=== PATIENT | male | born 1980 | race Caucasian/White ===

== ENCOUNTER → 2019-01-21 12:16 | Outpatient (CLI) | payer OTHER, SELFPAY ==
[2019-01-21 15:08] LABS: ALB/GLOB Ratio 1.4 RATIO (0.9-2.4); AST(SGOT) 23 U/L (15-37); Alanine Aminotransfer ALT/SGPT 46 U/L (16-61); Albumin, Serum 4.2 g/dL (3.2-5.0); Alkaline Phosphatase 46 U/L (45-117); Anion Gap 9 (5-15); BUN 20 mg/dL (7-18); BUN/Creat Ratio 18.9 RATIO (10-20); Calcium,Total 8.5 mg/dL (8.5-10.1); Chloride 109 mmol/L (98-107); Cholesterol 166 mg/dL (200); Creatinine, Serum 1.06 mg/dL (0.70-1.30); EST Glomerular Filtration Rate 83 mL/min (>60); Est Glom Filt Rate - Afr Amer 101 mL/min (>60); Globulin 2.9 g/dL (2.2-4.2); Glucose 74 mg/dL (74-106); High Density Lipoprotein 38 mg/dL; Potassium 3.9 mmol/L (3.5-5.1); Protein, Total 7.1 g/dL (6.4-8.2); Sodium Level 142 mmol/L (136-145); T4 Free Direct 1.31 ng/dL (0.76-1.46); Thyroid Stim Hormone (TSH) 1.81 uIU/mL (0.358-3.74); Triglycerides 157 mg/dL; Very Low Density Lipoprotein 31 mg/dL (5-40)
[2019-01-22 20:07] LABS: Endomysial Antibody IgA Negative (Negative); Immunoglobulin A 393 mg/dL (90-386)
[2019-01-24 09:11] LABS: Anti-Thyroglobulin AB < 1.0 IU/mL (0.0-0.9); Thyroglobulin, Serum Qt. 17.5 ng/mL (1.4-29.2); Thyroid Peroxidase AB 8 IU/mL (0-34); t-Transglutaminase IgA <2 U/mL (0-3)
== END ==
PROVIDERS: Family Provider Family Medicine; PCP Family Medicine; Referring Provider Family Medicine; Visit Provider Family Medicine
DX: E01.0 Iodine-deficiency related diffuse (endemic) goiter (principal); R19.7 Diarrhea, unspecified
CPT/HCPCS: 36415; 80053; 80061; 82784; 83516; 84432; 84439; 84443; 86255; 86376; 86800

== ENCOUNTER → 2019-01-26 09:55 | Outpatient (CLI) | payer OTHER, SELFPAY ==
--- NOTE | 2019-01-26 09:58 | US_ITS ---
STUDY: THYROID ULTRASOUND REASON FOR EXAM: Male, 38 years old. Thyromegaly TECHNIQUE: Ultrasound evaluation of the thyroid was performed with real-time and static cano-scale imaging. COMPARISON: None. FINDINGS: RIGHT LOBE: The right lobe of the thyroid gland measures 5.2 x 1.8 x 2.0 cm. There is a homogeneous echotexture. There is a solid 8 mm lower pole nodule LEFT LOBE: The left lobe of the thyroid gland measures 4.6 x 1.6 x 1.3 cm. There is a homogeneous echotexture. There are no demonstrated solid, cystic or complex lesions. ISTHMUS: The isthmus measures 0.6 cm. The regional lymph nodes are normal. US/Thyroid IMPRESSION: Normal size and homogeneous thyroid gland with a 6 x 8 x 8 mm nodule in the right lobe. Further evaluation with thyroid uptake study is recommended since no previous studies are available for comparison. If the nodule should demonstrate suspicious uptake characteristics, biopsy would be recommended, if not a six-month follow-up would be recommended to assure stability Electronically Signed: Osbaldo Blanco MD at 11:51 EDT , Service support ,
== END ==
PROVIDERS: Family Provider Family Medicine; PCP Family Medicine; Referring Provider Family Medicine; Visit Provider Family Medicine
DX: E01.0 Iodine-deficiency related diffuse (endemic) goiter (principal)
CPT/HCPCS: 76536

== ENCOUNTER 2019-02-12 07:15 | Day surgery (SDC) | payer OTHER, SELFPAY ==
[2019-02-12] VITALS (8 sets, daily range): BP systolic 128–148; BP diastolic 70–98; PULSE 67–88; RESP 16–18; TEMP 36.5–37; O2SAT 92–95; BMI 42.1
[2019-02-12] MEDS: Lidocaine 4% 50 ML Bottle (08:17)
[2019-02-12] MEDS: Oxymetazoline 0.05% 1 SPRAY SPRAY.BTL 15 SPRAY (08:17)
--- NOTE | 2019-02-12 08:45 | ETH_PTH ---
PATIENT: DAVID MURRELL LOC: [facility] [place] U#:[id number] AGE/SX: 38/M ROOM: RE02/12/[address]: Dr. Maxwell Cash MD : [id number] BED: DIS: 02/12/2019 SPEC #: [id number] RECD: 02/12/19 09:48 STATUS: HENRRY REMehreen #: [id number] AMAN: 02/12/19 08:[address]: Maxwell Cash DEPT: SURGICAL PATHOLOGY RECD BY: Declan Castañeda ENTERED: 02/12/19 10:53 SP TYPE: ETH TISS OTHR DR: Dr. Trevor Johansen MD Tissues: Ethmoid sinus, NOS Procedures: Decalcification bone/plaque Surgery Specimen Level IV HEADER OPERATION: Endoscopy, sinus nasal maxillary antrostomy PRE-OP DIAGNOSIS: Chronic maxillary sinusitis; chronic ethmoidal sinusitis; chronic bullosa TISSUE SUBMITTED: Left sinus contents MICROSCOPIC DIAGNOSIS Left sinus contents: Fragments of respiratory mucosal tissue with chronic inflammation and bone. DARIUSZ:jayde 02/17/19 MICROSCOPIC DESCRIPTION Slides are reviewed. GROSS DESCRIPTION Received in fixative is one container labeled with the patient's name and designated left sinus contents. The specimen consists of multiple fragments of hemorrhagic soft tissue mixed with possible fragments of bone that in aggregate measure 5 x 3 x 0.8 cm. The entire specimen is submitted in four cassettes after decalcification. / DARIUSZ:jayde 02/12/19 TC:3 CPT: 55452, 34182
--- NOTE | 2019-02-12 09:29 | PCM.OPRPT ---
Problem List (1) Chronic maxillary sinusitis Status: Chronic (2) Chronic ethmoidal sinusitis Status: Chronic Report of Operation Date of Procedure: 02/12/19 Pre-Operative Diagnosis: Chronic left maxillary and ethmoid sinusitis Post-Operative Diagnosis: same Surgery/Procedure Performed:: Left maxillary antrostomy, total ethmoidectomy with resection of dorcas bullosa Description of Surgical Findings:: Jermaine is a 38-year-old male preservation of chronic left-sided nasal obstruction failing medical and antibiotic therapy. CT scan showed extensive maxillary and ethmoid sinusitis on that side and the above procedure offered hopes of relief. The risks, alternatives, potential complications, and benefits were discussed at length and any questions answered to the patient and/or caregiver's satisfaction. Witnessed informed consent was obtained in the office, and the patient and/or caregiver was agreeable to proceed. Procedure went as follows: The patient was identified in the preoperative holding and brought to the operating room, was placed under general anesthesia and intubated. When appropriate anesthesia was obtained, the navigational head gear was placed and confirmed to be operational in accordance with the loan interviewer mortgage's directions. Pledgets soaked in a 50-50 mixture of oxymetazoline and 4% topical lidocaine were placed to decongest the nasal mucosa. These were then removed and beginning on the left side using a 0? endoscope the nasal cavity examined. The insertion of the middle turbinate and uncinate process was then injected with 1% lidocaine with 100,000 epinephrine for a total of 6 mL. On the left side, the middle turbinate was medialized with a Tift elevator. This allowed examination of the maxillary sinus ostia which was then probed with a double ball seeker. There is noted to be a secondary ostia in the posterior fontanelle. The uncinate process was then outfractured with a J curette and transected with a backbiting forceps. This was then adjoined to the secondary ostia creating 1 large antrostomy. The obstructing tissue was then removed with the microdebrider creating a wide maxillary antrostomy. The ethmoid bulla was then entered and a total ethmoidectomy was then carried out working posteriorly to anterior. Any polyps, scar, and mucous secretions were removed. There is noted to be a large dorcas bullosa in the middle turbinate was then resected with a through cut instrument and removed as specimen. The posterior aspect of the middle turbinate was then cauterized with suction electrocautery for hemostasis. Floseal hemostatic agent was then applied. An NG tube was then placed to decompress the stomach and the patient returned to anesthesia, revived and extubated having tolerated the procedure well. Type of Anesthesia:: General Anesthesiologist: Parth De La O Special Medications: none Specimen's removed: left maxillary and ethmoid sinus contents Drains: none Estimated Blood Loss (mL): 150 mL Fluids Replaced: 700 mL Grafts/Implants Used: none - Complications none - Admit VTE Documentation VTE Present on Admission: No VTE Mechan Device Prophylaxis: SCD's VTE Pharm Prophylaxis ordered?: No
--- NOTE | 2019-02-12 09:34 | PCM.DC ---
- Discharge Diagnoses Current Active Problems: Current Active and Chronic Problems Chronic maxillary sinusitis (Chronic) Chronic ethmoidal sinusitis (Chronic) You will use the following diet at home:: Regular Discharge Activity: Return to Normal Activity, May not drive while taking narcotic pain medications. Call your doctor if your incision/area has: Sudden Increased Bleeding Call your doctor if you observe: Fever of 101 or Higher, Uncontrolled pain Allergies/Adverse Reactions: Allergies No Known Allergies Allergy (Verified 02/05/19 11:07) Medications to take at Discharge Fluticasone 0.05% [Flonase Nasal [place]] 1 spray NASAL DAILY 02/05/19 Levocetirizine Dihydrochloride [Xyzal] 5 mg PO DAILY 02/05/19 RX: Ibuprofen 600 mg PO DAILY 02/05/19 Primary Care Physician: Trevor Johansen MD [Primary Care Provider] - Test Results: Test results from this visit will be discussed in further detail at your follow-up appointment, if applicable. Please Follow Up With: Maxwell Cash MD When: 2 weeks
== END 2019-02-12 12:15 | disposition home or self-care (01) ==
LOC: SDC 07:17 → AC 07:18
PROVIDERS: Family Provider Family Medicine; PCP Family Medicine; Referring Provider Otolaryngology; Visit Provider Otolaryngology
PROC: (CPT 31240; principal; 2019-02-12 08:15)
DX: J32.0 Chronic maxillary sinusitis (principal); J32.2 Chronic ethmoidal sinusitis
CPT/HCPCS: 31240; 31255; 31267; 88305; 88311; J7120; J2405

== ENCOUNTER → 2019-06-02 15:24 | Outpatient (CLI) | payer OTHER, SELFPAY ==
[2019-02-12 07:33] VITALS: BMI 42.1
--- NOTE | 2019-06-02 15:27 | US_ITS ---
STUDY: THYROID ULTRASOUND REASON FOR EXAM: Male, 38 years old. Nodule TECHNIQUE: Ultrasound evaluation of the thyroid was performed with real-time and static cano-scale imaging. COMPARISON: January 26, 2019 FINDINGS: RIGHT LOBE: The right lobe of the thyroid gland measures 4.7 x 1.8 x 1.6 cm. There is a homogeneous echotexture. Small solid nodule in the lower lobe measuring 6.9 x 7.9 x 8 mm. LEFT LOBE: The left lobe of the thyroid gland measures 4.1 x 1.7 x 1.1 cm. There is a homogeneous echotexture. There are no demonstrated solid, cystic or complex lesions. ISTHMUS: The isthmus measures 6 mm . The regional lymph nodes are normal. There is no significant change in size of the nodule since prior exam US/Thyroid IMPRESSION: Stable appearing solid nodule in the lower pole of the the right lobe of the thyroid measuring approximately 6.9 x 7.9 x 8 mm Electronically Signed: Javad Prescott MD at 16:06 EDT , Service support ,
== END ==
PROVIDERS: Family Provider Family Medicine; PCP Family Medicine; Referring Provider Family Medicine; Visit Provider Family Medicine
DX: E04.1 Nontoxic single thyroid nodule (principal)
CPT/HCPCS: 76536

== ENCOUNTER 2020-06-14 14:00 | Outpatient (RCR) | payer OTHER, SELFPAY ==
[2019-02-12 07:33] VITALS: BMI 42.1
--- NOTE | 2020-04-21 12:45 | HP.PTEVAL ---
Patient's Visit Information DAVID MURRELL is a 39 year old M referred to Physical Therapy by Dr. Bob Bcukley MD with a diagnosis of R shoulder injury. Date of Evaluation: 04/21/20 Physical Therapist: Maxwell Serra DPT, OCS, CSCS - Visit Plan Frequency: 2-3x /Week Duration: 4-6 Weeks Plan: 2-3x/week for 2-4 weeks for. cervical ret ext ex adn progression of forces. upper thoracic and cervical ext mobs. STM, TP TO R RHOMBOIDS EACH SESSION. strengthening of posture, cervical muscle adn pec stretching, POSTURAL forcus - Subjective Shoulder hurts , feels like a knot under it. Bad in morning adn tingling down arm at t imes. Been there for a couple weeks. Better as days goes on if he moves it. Sittign around makes it worse. Pain is under R shoulder blade posterioroly. Rates 8/10 in am and wakes him up at night. Currently 2/10. Some tingling this am. 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 Did call off one day due to pain. Not improving adn is nagging. Home activities are pretty normal, just deals with it. Neck does not really hurt. LB has intermittent pain which is normal for him. - Pain R post shoulder Pain Intensity (Out of 10): 2 Pain Intensity Range: 0, 2, 8 Comment: slept in recliner felt good. - Objective Baseline no tingling. R scap hurts 2/10. protrusion: travels up neck , W. Flexion: W 3/10 and neck pain. retraction: P central neck pain during, Pburning in neck, B R shoulder 2/10. ret /ext: dull ache, 2/10. . Posture is forward head and elevated scap, very muscular. Tender to touch R rhomboids medial to R scap. Scap mobility is fair although depression limited. UE AROM WFL and only pain end range of ext rotation. Cervical ROM 65 B rotation with R pain at end range, 45 ext, retraction limited. reflexes 2/3 bi and tri. SensationUE WNL to gross light touch. UE AROM WFL. Tightness obvious in pectorals. Slight + R cervical compression, no relief with arm OH though. - Goals Goal 1:: Pain in shoulder 90% better at 1/10 at worst Goal Time Frame: 4-6 Weeks Goal 2:: No loss of sleep due to paina nd wake up comfortably Goal Time Frame: 4-6 Weeks Goal 3:: 15 or less quick dash score Goal Time Frame: 4-6 Weeks - Rehabilitation Potential Physical Therapy Diagnosis: R scap pain, cervical derangement vs rhomboid knot. Rehabilitation Potential: Good - Anticipated Interventions Patient/Client Instruction: Educate patient on: Condition, Plan of Care For the Purpose of:: To decrease pain, To increase tolerance to activity/condition/position Therapeutic Exercise to Include: Strength training, Postural training, Flexibilty training, Passive ROM, Active ROM, Amari Exercises For the Purpose of:: To decrease pain, To increase ROM, To improve muscle performance and motor function, To increase tolerance to activity/condition/position Manual Therapy Techniques to Include: Mobilization, Soft tissue mobilization For the Purpose of:: To decrease pain, To increase ROM Thank you for the opportunity to evaluate your patient. For Medicare and Medicare HMO plans, please review the plan of care and approve it. It will need to be FAXED BACK to us at [phone] for Medicare purposes. For Medicare only, by signing this I certify the plan of care. Please let me know if there are questions or concerns regarding this plan of care. Physician Signature: Date:
--- NOTE | 2020-05-11 11:58 | HP.PTREVAL ---
Dr. Bob Buckley MD, It has been my pleasure to treat DAVID MURRELL over the last 6 visits for R shoulder injury. Please see the progress note below for an update on the physical therapy plan of care! Subjective: Shoulder feeling better. Has not noticed it much in the past few days. Feeling better overall. Has good HEP but could not do it yesterday as he was busy. No f/u scheduled with doctor. Neck stiff 3 days ago. Shoulder pain gone for 3 days and had it after sleeping wrong, 12/20. Work going well. Feeling better. Objective/Function: Full cervical AROM 85 ext with just some end range central tightness. rotation are 80 degrees without pain. Full UE AROM without pain and 4+ strength. Overall doing well Plan Plan: 5 visits for. 1. 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 2. Get to end range of cervical extension repeatedly and c/s T/s ext mobs as needed. Enusre patient focussing on posture. Goals Goal 1:: Pain in shoulder 90% better at 1/10 at worst Goal Time Frame: 4-6 Weeks Goal Progress: Goal Met Goal 2:: No loss of sleep due to paina nd wake up comfortably Goal Time Frame: 4-6 Weeks Goal Progress: Goal Met Goal 3:: 15 or less quick dash score Goal Time Frame: 4-6 Weeks Goal Progress: Goal Met Goal 4:: I approp gym exercise program for cevical and postural strength without increaseing pain Goal Time Frame: 2-4 Weeks Goal Progress: NEW GOAL Anticipated Interventions Patient/Client Instruction: Educate patient on: Condition, Plan of Care For the Purpose of:: To decrease pain, To increase tolerance to activity/condition/position Therapeutic Exercise to Include: Strength training, Postural training, Flexibilty training, Passive ROM, Active ROM, Amari Exercises For the Purpose of:: To decrease pain, To increase ROM, To improve muscle performance and motor function, To increase tolerance to activity/condition/position Manual Therapy Techniques to Include: Mobilization, Soft tissue mobilization For the Purpose of:: To decrease pain, To increase ROM Please do not hesitate to contact me at [phone] by phone or if you have questions or concerns regarding this new plan of care! Sincerely, Maxwell Serra, DPT, OCS, CSCS
--- NOTE | 2020-06-14 14:19 | HP.PTDCSUM ---
It has been my pleasure to treat DAVID MURRELL referred by Dr. Bob Buckley MD, with the diagnosis of R shoulder injury for a total of 11 visit(s). Discharge Date: 06/14/20 Please see the following information for a summary of their discharge status. Subjective: Better. Not bothering him much adn stretches have helped. Some tightness in traps but nothing else. Doing some gym workout. Activities normal and work normal. R post shoulder Pain Intensity (Out of 10): 0 UT Pain Intensity (Out of 10): 0 Back Pain Intensity (Out of 10): 0 % Improvement: 95 Objective/Function: Full c/s AROM to 85 ext, 80 B rotations without pain, full sB. Srength in UE 5/5 withput pain. Slight FW head posture corrected with VC. Overall, much better adn confident he can continue on own. Goal 1:: Pain in shoulder 90% better at 1/10 at worst Goal Progress: Goal Met Goal 2:: No loss of sleep due to paina nd wake up comfortably Goal Progress: Goal Met Goal 3:: 15 or less quick dash score Goal Progress: Goal Met Goal 4:: I approp gym exercise program for cevical and postural strength without increaseing pain Goal Progress: Goal Met Plan: d/c, will contact doctor if pain returns. If there are questions or concerns regarding this patient's physical therapy, please feel free to call me at [phone]. Thank you for the referral of this patient. Sincerely, Maxwell Serra, DPT, OCS, CSCS
== END 2020-06-14 19:00 | disposition home or self-care (01) ==
LOC: PT 14:00
PROVIDERS: PCP Family Medicine; Referring Provider Family Medicine; Visit Provider Family Medicine
DX: S49.91XD Unspecified injury of right shoulder and upper arm, subsequent encounter (principal)
CPT/HCPCS: 97110; 97140; 97162; 97164

== ENCOUNTER → 2020-10-02 16:24 | Outpatient (CLI) | payer OTHER, SELFPAY ==
[2019-02-12 07:33] VITALS: BMI 42.1
== END ==
PROVIDERS: PCP Family Medicine; Visit Provider Family Medicine
DX: U07.1 COVID-19 (principal)
CPT/HCPCS: 87635; U0003

== ENCOUNTER 2020-10-30 13:01 | Outpatient (RCR) | payer OTHER, SELFPAY ==
[2019-02-12 07:33] VITALS: BMI 42.1
== END 2020-11-09 23:59 ==
LOC: NS 13:01
PROVIDERS: PCP Family Medicine; Visit Provider Family Medicine
DX: Z71.3 Dietary counseling and surveillance (principal)
CPT/HCPCS: 97802

== ENCOUNTER 2020-12-05 11:00 | Outpatient (RCR) | payer OTHER, SELFPAY ==
[2019-02-12 07:33] VITALS: BMI 42.1
== END 2020-12-10 23:59 ==
LOC: NS 11:00
PROVIDERS: PCP Family Medicine; Visit Provider Family Medicine
DX: Z71.3 Dietary counseling and surveillance (principal)
CPT/HCPCS: 97803

== ENCOUNTER 2021-01-01 12:00 | Outpatient (RCR) | payer OTHER, SELFPAY ==
[2019-02-12 07:33] VITALS: BMI 42.1
== END 2021-01-07 23:59 ==
LOC: NS 12:00
PROVIDERS: PCP Family Medicine; Visit Provider Family Medicine
DX: Z71.3 Dietary counseling and surveillance (principal)
CPT/HCPCS: 97803

== ENCOUNTER 2021-01-30 12:00 | Outpatient (RCR) | payer OTHER, SELFPAY ==
[2019-02-12 07:33] VITALS: BMI 42.1
== END 2021-02-07 23:59 ==
LOC: NS 12:00
PROVIDERS: PCP Family Medicine; Visit Provider Family Medicine
DX: Z71.3 Dietary counseling and surveillance (principal)
CPT/HCPCS: 97803

== ENCOUNTER → 2021-02-27 08:53 | Outpatient (CLI) | payer OTHER, SELFPAY ==
[2019-02-12 07:33] VITALS: BMI 42.1
--- NOTE | 2021-02-27 08:57 | RAD_ITS ---
STUDY: X-RAY - SACROILIAC JOINTS REASON FOR EXAM: Male, 40 years old. BACK PAIN TECHNIQUE: 3 view(s) of the sacroiliac joints were obtained. COMPARISON: None. FINDINGS: Normal bilateral sacroiliac joints. Normal visualized sacral ala and sacrum. Normal visualized iliac bones. Normal visualized soft tissue structures. RAD/S-I Jts 3 or More Views IMPRESSION: Normal x-ray examination of the bilateral sacroiliac joints. Electronically Signed: Сергей Coffey MD at 15:08 EDT , Service support ,
--- NOTE | 2021-02-27 09:00 | RAD_ITS ---
STUDY: X-RAY - LUMBAR SPINE REASON FOR EXAM: Male, 40 years old. BACK PAIN TECHNIQUE: 4 view(s) of the lumbar spine were obtained. COMPARISON: None FINDINGS: Normal lumbar lordosis. There is no substantial scoliosis. There is a normal alignment of the vertebrae. There is a transitional L5 vertebrae with partial sacralization. Spina bifida occulta of the L5 vertebrae. Anterior spondylosis at the T10-T11, T11-T12 level. Disc space narrowing at the L4-L5 and L5-S1 levels. The soft tissue structures are unremarkable. RAD/L/S Spine Min 4 Views IMPRESSION: Degenerative changes of the spine, as detailed above. Transitional vertebrae with partial sacralization of the L5 vertebrae. Spina bifida occulta of the L5 vertebrae. Electronically Signed: Сергей Coffey MD at 15:10 EDT , Service support ,
== END ==
LOC: MTRAD 08:55
PROVIDERS: PCP Family Medicine; Referring Provider Family Medicine; Visit Provider Family Medicine
DX: Q76.0 Spina bifida occulta (principal); Q76.49 Other congenital malformations of spine, not associated with scoliosis; M48.061 Spinal stenosis, lumbar region without neurogenic claudication; M47.814 Spondylosis without myelopathy or radiculopathy, thoracic region
CPT/HCPCS: 72110; 72202

== ENCOUNTER 2021-02-27 11:00 | Outpatient (RCR) | payer OTHER, SELFPAY ==
[2019-02-12 07:33] VITALS: BMI 42.1
== END 2021-03-09 23:59 ==
LOC: NS 11:00
PROVIDERS: PCP Family Medicine; Visit Provider Family Medicine
DX: Z71.3 Dietary counseling and surveillance (principal); E66.9 Obesity, unspecified
CPT/HCPCS: 97803

== ENCOUNTER 2021-04-25 16:06 | Emergency (ER) | payer OTHER, SELFPAY ==
[2021-03-14 12:49] VITALS: BMI 42.1
[2021-04-25 16:07] VITALS: BP 156/87; PULSE 77; RESP 15; TEMP 36.6; O2SAT 95; BMI 38.2
--- NOTE | 2021-04-25 16:17 | EX.ED.GENINJ ---
HPI History of Present Illness Chief Complaint: Laceration Informant: patient Narrative Narrative: 40-year-old male was using a table saw when his left thumb contacted the blade. This resulted in wound to the volar distal aspect of the left thumb. Unsure of his last tetanus. He is a superintendent operations division. Tetanus Immunization: Unknown [facility] Medical History (Updated 04/25/21 @ 16:[address] Jai Tran DO) Chronic ethmoidal sinusitis Chronic maxillary sinusitis Home Medications fluticasone propionate 1 spray NASAL DAILY 02/05/19 [History Last Taken Unknown] ibuprofen 600 mg PO DAILY 02/05/19 [History Last Taken Unknown] levocetirizine [Xyzal] 5 mg PO DAILY 02/05/19 [History Last Taken Unknown] acetaminophen [Tylenol] 500 mg PO Q4H PRN PRN tablet 02/12/19 [Rx Last Taken Unknown] Allergy/AdvReac Type Severity Reaction Status Date / Time No Known Allergies Allergy Verified 02/05/19 11:07 Social History (Updated 04/25/21 @ 16:[address] Jai Tran DO) Smoking Status: Never smoker substance use type: does not use ROS ROS ED Constitutional Constitutional ED: Denies chills or weight loss Eyes Eyes: Denies change in vision or diplopia ENT ENT ED: Denies ear pain, rhinorrhea or sore throat Cardiovascular Cardiovascular: Denies chest pain, orthopnea, palpitations or racing heartbeat Respiratory/Chest Respiratory/Chest: Denies cough, dyspnea or orthopnea Gastrointestinal Gastrointestinal: Denies abdominal pain, diarrhea, nausea or vomiting Genitourinary Genitourinary ED: Denies dysuria, hematuria or urinary frequency Musculoskeletal Musculoskeletal: Denies arthralgias or myalgias Integumentary Reports other Details: Wound left thumb ; Denies abscess or rash Neurologic Neurologic: Denies headache(s) or weakness Psychiatric Psychiatric: Denies anxiety, depression, suicidal ideation or suicidal thoughts Endocrine Endocrinology: Denies polydipsia, polyphagia or polyuria Allergic/Immunologic Allergic/Immunologic ED: Denies mouth swelling, tongue swelling or urticaria EXAM Physical Exam Const Vital Signs: 04/25/21 16:07 Temperature 97.8 F Temperature Source Temporal Pulse Rate 77 Respiratory Rate 15 Blood Pressure 156/87 H Blood Pressure Mean 110 Pulse Ox 95 Oxygen Delivery Method Room Air Positive well nourished and well developed General Appearance ED: well developed HEENT Reports normocephalic, head/scalp atraumatic and moist mucous membranes Eyes PERRL and EOMs intact bilaterally Neck no lymphadenopathy, supple and no JVD Resp normal respiratory effort and clear to auscultation bilaterally Cardio regular rate, regular rhythm and no murmurs GI normal to inspection, nondistended, normoactive bowel sounds and non-tender Palpation: soft Back/Spine no CVA tenderness and normal ROM Extremity normal to inspection General Extremety ED: Negative for edema General Extremity: Negative for edema Neuro oriented x3 and CN's II-XII intact bilaterally Sensorium / Orientation: alert Motor Exam: strength 5/5 throughout Psych mental status grossly normal Mood & Affect: Negative for depressed or tearful Skin no rashes or lesions noted Skin Narrative: There is 1/2 cm long by 3 mm wide superficial skin avulsion. No active bleeding. MDM MDM MDM Narrative Medical decision making narrative: Tetanus was updated with Adacel. Wound was washed and dressed. Discharge Plan Triage Chief Complaint: Laceration ED Provider: Jai Tran Dx/Rx/DC Orders Clinical Impression: Avulsion of skin of finger Instructions: ED Skin Avulsion Prescriptions: No Action ibuprofen 600 MG tablet 600 mg PO DAILY RF: 0 fluticasone propionate 1 SPRAY Nasal.Sry 1 spray NASAL DAILY RF: 0 levocetirizine [Xyzal] 5 MG tablet 5 mg PO DAILY RF: 0 acetaminophen [Tylenol] 325 MG tablet 500 mg PO Q4H PRN PRN (Reason: Mild-Moderate Pain (1-5/10)) RF: 0 Primary Care Provider: Trevor Johansen Referrals: Trevor Johansen MD [Primary Care Provider] - As Needed Disposition Disposition: Home, self care
[2021-04-25] MEDS: Diphth,Pertuss(Acell),Tet Vac 0.5 ML Vial IM (16:23)
== END 2021-04-25 16:35 | disposition home or self-care (01) ==
LOC: ED 16:29
PROVIDERS: Emergency Provider Emergency Medicine; PCP Family Medicine
DX: S61.002A Unspecified open wound of left thumb without damage to nail, initial encounter (principal); W29.8XXA Contact with other powered hand tools and household machinery, initial encounter
CPT/HCPCS: 90715; 96372; 99282

== ENCOUNTER → 2021-05-01 15:45 | Outpatient (CLI) | payer OTHER, SELFPAY ==
[2021-04-25 16:07] VITALS: BMI 38.2
[2021-05-01 17:57] LABS: Absolute Lymphocyte Count 2.16 X10^3/uL (0.83-4.51); Absolute Neutrophil Count 5.7 X10^3/uL (2.0-7.7); Basophil# 0.06 X10^3/uL; Basophil% 0.7 % (0-1); Eosinophil# 0.39 X10^3/uL; Eosinophils% 4.3 % (0-5); Hematocrit 47.1 % (40-54); Hemoglobin 15.6 g/dL (13.0-16.5); Lymphocyte # 2.16 X10^3/ul (0.83-4.51); Lymphocyte % 23.9 % (19-41); Mean Corp Hgb Conc 33.1 g/dL (32-36); Mean Corpuscular Volume 84.4 fL (80-94); Mean Platelet Vol. 8.4 fl (6.2-12.0); Monocyte# 0.66 X10^3/uL; Monocyte% 7.3 % (0-10); NRBC Flagged by Analyzer 0 % (0-5); Neutrophil # 5.71 X10^3/uL (2.7-7.7); Neutrophil % 63.2 % (47-70); Platelet Count 142 K/mm3 (150-450); RBC Distribution Width CV 12.6 % (11.6-14.6); Red Blood Count 5.58 M/mm3 (4.6-6.2)
[2021-05-01 18:10] LABS: ALB/GLOB Ratio 1.3 RATIO (0.9-2.4); AST(SGOT) 22 U/L (15-37); Alanine Aminotransfer ALT/SGPT 44 U/L (16-61); Albumin, Serum 4.1 g/dL (3.2-5.0); Alkaline Phosphatase 46 U/L (45-117); Anion Gap 8 (5-15); BUN 16 mg/dL (7-18); BUN/Creat Ratio 14.4 RATIO (10-20); Calcium,Total 8.5 mg/dL (8.5-10.1); Chloride 107 mmol/L (98-107); Cholesterol 143 mg/dL (200); Creatinine, Serum 1.11 mg/dL (0.70-1.30); EST Glomerular Filtration Rate 78 mL/min (>60); Est Glom Filt Rate - Afr Amer 95 mL/min (>60); Globulin 3.2 g/dL (2.2-4.2); Glucose 85 mg/dL (74-106); High Density Lipoprotein 50 mg/dL; Potassium 4.2 mmol/L (3.5-5.1); Protein, Total 7.3 g/dL (6.4-8.2); Sodium Level 140 mmol/L (136-145); Triglycerides 76 mg/dL; Very Low Density Lipoprotein 15 mg/dL (5-40)
== END ==
LOC: MFPLAB 15:50
PROVIDERS: PCP Family Medicine; Referring Provider Family Medicine; Visit Provider Family Medicine
DX: E66.01 Morbid (severe) obesity due to excess calories (principal)
CPT/HCPCS: 36415; 80053; 80061; 85025

== ENCOUNTER 2021-05-07 14:00 | Outpatient (RCR) | payer OTHER, SELFPAY ==
[2019-02-12 07:33] VITALS: BMI 42.1
[2021-03-14 12:49] VITALS: BMI 42.1
== END 2021-05-09 23:59 ==
LOC: NS 14:00
PROVIDERS: PCP Family Medicine; Visit Provider Family Medicine
DX: Z71.3 Dietary counseling and surveillance (principal); Z68.38 Body mass index [BMI] 38.0-38.9, adult
CPT/HCPCS: 97803

== ENCOUNTER → 2021-06-21 14:39 | Outpatient (CLI) | payer OTHER, SELFPAY ==
--- NOTE | 2021-06-21 14:42 | RAD_ITS ---
EXAM: XR CHEST, 2 VIEWS CLINICAL INDICATION: Cough. TECHNIQUE: Frontal and lateral views of the chest. This report was created using [employer] report generation technology. COMPARISON: None. FINDINGS: LUNGS AND PLEURAL SPACES: Mild pulmonary hypoinflation. The lungs are clear. No pneumothorax. No effusion. HEART: Unremarkable. Cardiac silhouette not enlarged. MEDIASTINUM: Central airways and mediastinal contour are unremarkable. BONES/JOINTS: Unremarkable. SOFT TISSUES: Unremarkable. RAD/Chest PA and Lateral IMPRESSION: Normal chest radiographs. Electronically Signed: Kp Apodaca MD at 14:58 EDT , Service support ,
== END ==
PROVIDERS: PCP Family Medicine; Referring Provider Nurse Practitioner Family; Visit Provider Nurse Practitioner Family
DX: R05 Cough (principal)
CPT/HCPCS: 71046

== ENCOUNTER 2021-07-03 13:24 | Outpatient (RCR) | payer OTHER, SELFPAY | END 2021-07-10 23:59 | LOC: NS 13:24 | PROVIDERS: PCP Family Medicine; Visit Provider Family Medicine | DX: Z71.3 Dietary counseling and surveillance (principal); Z68.39 Body mass index [BMI] 39.0-39.9, adult | CPT/HCPCS: 97803 ==

== ENCOUNTER 2021-08-28 09:43 | Outpatient (RCR) | payer OTHER, SELFPAY ==
[2021-07-11 00:14] VITALS: BMI 38.2
== END 2021-09-09 23:59 ==
LOC: NS 09:43
PROVIDERS: PCP Family Medicine; Visit Provider Family Medicine
DX: Z71.3 Dietary counseling and surveillance (principal); E66.01 Morbid (severe) obesity due to excess calories; Z68.41 Body mass index [BMI] 40.0-44.9, adult
CPT/HCPCS: 97803

== ENCOUNTER → 2021-09-05 | Outpatient (CLI) | payer OTHER, SELFPAY | END | disposition home or self-care (01) | PROVIDERS: PCP Family Medicine; Visit Provider Family Medicine | DX: B34.9 Viral infection, unspecified (principal) | CPT/HCPCS: 87633; 87635; U0005; U0003 ==

== ENCOUNTER → 2021-09-07 10:20 | Outpatient (CLI) | payer OTHER, SELFPAY ==
--- NOTE | 2021-09-07 10:23 | CT_ITS ---
STUDY: CT SOFT TISSUE NECK WITH CONTRAST REASON FOR EXAM: Male, 40 years old. 3 week history of a sore throat. RADIATION DOSAGE (If Supplied By Facility): CTDIvol = ( 19.85 ) mGy, DLP = ( 624.75 ) mGycm TECHNIQUE: The patient was scanned in a multi-detector CT scanner. High resolution transaxial imaging was performed following intravenous administration of IV- 75 mL IsoVue 370. Sagittal and coronal images were reconstructed. Individualized dose optimization techniques were used for this CT. COMPARISON: None. FINDINGS: Normal bilateral parotid glands. Normal bilateral window shade ring sewer spaces. Normal bilateral parapharyngeal spaces. Normal bilateral carotid spaces. Normal bilateral sublingual and submandibular glands and spaces. Normal visualized nasopharynx. Normal retropharyngeal space. Normal perivertebral space. Mildly enlarged bilateral faucial tonsils. No focal abscess is seen. The visualized tongue, tongue base and oropharynx are normal. There are minimally enlarged lymph nodes of the neck, with preservation of normal gisele architecture, consistent with a reactive lymph hyperplasia. There is no demonstrated solid or cystic mass lesion. There is no abnormal contrast enhancement. Normal epiglottis, bilateral vallecula and hypopharynx. The pre-epiglottic and paraglottic adipose spaces are normal. Normal visualized bilateral piriform sinuses, aryepiglottic folds, vocal cords, and arytenoid-cricoid articulations. Normal subglottic trachea. Normal bilateral lobes of the thyroid gland. Normal visualized pulmonary apices. Normal visualized paranasal sinuses. Normal visualized cervical spine. CT/Soft Tissue Neck WITH Contrast IMPRESSION: Mildly enlarged bilateral faucial tonsils. Electronically Signed: Сергей Coffey MD at 11:03 EDT , Service support ,
[2021-09-07 12:10] LABS: Absolute Lymphocyte Count 1.67 X10^3/uL (0.83-4.51); Absolute Neutrophil Count 4.1 X10^3/uL (2.0-7.7); Basophil# 0.03 X10^3/uL; Basophil% 0.4 % (0-1); Eosinophil# 0.17 X10^3/uL; Eosinophils% 2.4 % (0-5); Hemoglobin 14.6 g/dL (13.0-16.5); Lymphocyte # 1.67 X10^3/ul (0.83-4.51); Lymphocyte % 23.9 % (19-41); Mean Corp Hgb Conc 32.4 g/dL (32-36); Mean Corpuscular Hgb 28.2 pg (27.0-32.0); Mean Corpuscular Volume 86.9 fL (80-94); Monocyte# 1.03 X10^3/uL; Monocyte% 14.7 % (0-10); NRBC Flagged by Analyzer 0 % (0-5); Neutrophil # 4.06 X10^3/uL (2.7-7.7); Neutrophil % 58.2 % (47-70); POSITIVE COUNT YES; Platelet Count 64 K/mm3 (150-450); RBC Distribution Width CV 12.4 % (11.6-14.6); RBC Distribution Width SD 39.7 fl (35.1-43.9); Red Blood Count 5.18 M/mm3 (4.6-6.2)
[2021-09-07 12:12] LABS: Differential Indicated SCAN CRITERIA MET
[2021-09-07 12:32] LABS: Differential Comment SCANNED
[2021-09-07 12:33] LABS: Platelet Estimate MOD DEC (ADEQ)
[2021-09-07 12:44] LABS: Internal QC Validated? YES +Cl - CLEAR BKGD; Monotest Negative (Negative)
== END ==
PROVIDERS: PCP Family Medicine; Referring Provider Family Medicine; Visit Provider Family Medicine
DX: J02.9 Acute pharyngitis, unspecified (principal); J35.1 Hypertrophy of tonsils
CPT/HCPCS: 36415; 70491; 85025; 86308; Q9967

== ENCOUNTER 2021-10-09 10:27 | Outpatient (RCR) | payer OTHER, SELFPAY ==
[2021-09-10 00:03] VITALS: BMI 38.2
== END 2021-10-09 23:59 ==
LOC: NS 10:27
PROVIDERS: PCP Family Medicine; Visit Provider Family Medicine
DX: Z71.3 Dietary counseling and surveillance (principal); E66.01 Morbid (severe) obesity due to excess calories; Z68.41 Body mass index [BMI] 40.0-44.9, adult
CPT/HCPCS: 97803

== ENCOUNTER 2021-11-27 13:32 | Outpatient (RCR) | payer OTHER, BC, SELFPAY ==
[2021-10-10 00:11] VITALS: BMI 38.2
== END 2021-12-10 23:59 ==
LOC: NS 13:32
PROVIDERS: PCP Family Medicine; Visit Provider Family Medicine
DX: E66.9 Obesity, unspecified (principal); Z68.38 Body mass index [BMI] 38.0-38.9, adult; Z71.3 Dietary counseling and surveillance
CPT/HCPCS: 97803

== ENCOUNTER 2021-11-30 13:42 | Outpatient (CLI) | payer OTHER, BC, SELFPAY ==
[2021-11-30 15:09] LABS: Absolute Neutrophil Count 4.3 X10^3/uL (2.0-7.7); Basophil# 0.06 X10^3/uL; Basophil% 0.7 % (0-1); Eosinophil# 0.36 X10^3/uL; Eosinophils% 4.5 % (0-5); Hematocrit 46.6 % (40-54); Hemoglobin 15.7 g/dL (13.0-16.5); Lymphocyte % 31.2 % (19-41); Mean Corp Hgb Conc 33.7 g/dL (32-36); Mean Corpuscular Hgb 27.9 pg (27.0-32.0); Mean Corpuscular Volume 82.9 fL (80-94); Mean Platelet Vol. 8.3 fl (6.2-12.0); Monocyte# 0.76 X10^3/uL; Monocyte% 9.5 % (0-10); NRBC Flagged by Analyzer 0 % (0-5); Neutrophil # 4.32 X10^3/uL (2.7-7.7); Neutrophil % 53.9 % (47-70); Platelet Count 137 K/mm3 (150-450); RBC Distribution Width CV 12.3 % (11.6-14.6); RBC Distribution Width SD 37.1 fl (35.1-43.9); Red Blood Count 5.62 M/mm3 (4.6-6.2)
[2021-11-30 15:41] LABS: ALB/GLOB Ratio 1.3 RATIO (0.9-2.4); AST(SGOT) 21 U/L (15-37); Alanine Aminotransfer ALT/SGPT 43 U/L (16-61); Albumin, Serum 4.2 g/dL (3.2-5.0); Alkaline Phosphatase 45 U/L (45-117); Anion Gap 7 (5-15); BUN 19 mg/dL (7-18); BUN/Creat Ratio 18.6 RATIO (10-20); Calcium,Total 9.1 mg/dL (8.5-10.1); Chloride 108 mmol/L (98-107); Cholesterol 159 mg/dL (200); Creatinine, Serum 1.02 mg/dL (0.70-1.30); EST Glomerular Filtration Rate 86 mL/min (>60); Est Glom Filt Rate - Afr Amer 104 mL/min (>60); Globulin 3.3 g/dL (2.2-4.2); Glucose 74 mg/dL (74-106); High Density Lipoprotein 37 mg/dL; Potassium 3.9 mmol/L (3.5-5.1); Protein, Total 7.5 g/dL (6.4-8.2); Sodium Level 139 mmol/L (136-145); T4 Free Direct 1.17 ng/dL (0.76-1.46); Thyroid Stim Hormone (TSH) 2.12 uIU/mL (0.358-3.74); Triglycerides 174 mg/dL; Very Low Density Lipoprotein 35 mg/dL (5-40)
== END 2021-11-30 23:59 | disposition short-term general hospital (02) ==
LOC: MFPLAB 13:54
PROVIDERS: PCP Family Medicine; Referring Provider Family Medicine; Visit Provider Family Medicine
DX: E04.1 Nontoxic single thyroid nodule (principal); E66.9 Obesity, unspecified
CPT/HCPCS: 36415; 80053; 80061; 84439; 84443; 85025

== ENCOUNTER 2021-12-24 15:59 | Outpatient (CLI) | payer OTHER, BC, SELFPAY ==
--- NOTE | 2021-12-24 16:05 | US_ITS ---
STUDY: THYROID ULTRASOUND REASON FOR EXAM: Male, 41 years old. Thyroid nodule. TECHNIQUE: Ultrasound evaluation of the thyroid was performed with real-time and static cano-scale imaging. COMPARISON: June 02, 2019. FINDINGS: RIGHT LOBE: The right lobe of the thyroid gland measures 5.2 x 1.6 x 2.1 cm. There is a homogeneous echotexture. Cystic nodule mid/inferior pole measuring 0.5 x 0.4 x 0.5 cm. No solid nodule identified. LEFT LOBE: The left lobe of the thyroid gland measures 5.2 x 1.7 x 1.0 cm. There is a homogeneous echotexture. There are no demonstrated solid, cystic or complex lesions. ISTHMUS: The isthmus measures 6 mm which is mildly enlarged unchanged. . The regional lymph nodes are normal. US/Thyroid IMPRESSION: Thyroid gland is enlarged increased in size since prior study. On the prior study the right lobe measured 4.7 cm and left lobe 4.1 cm in greatest dimension. Subcentimeter cystic nodule inferior pole right lobe. Mildly enlarged isthmus unchanged. Electronically Signed: Sunday Tony MD at 4:21 EST Reading Location ID and State: [id number] / , Service support ,
== END 2021-12-24 23:59 | disposition home or self-care (01) ==
LOC: US 16:03
PROVIDERS: PCP Family Medicine; Referring Provider Family Medicine; Visit Provider Family Medicine
DX: E04.1 Nontoxic single thyroid nodule (principal)
CPT/HCPCS: 76536

== ENCOUNTER 2021-12-27 09:27 | Outpatient (CLI) | payer OTHER, BC, SELFPAY ==
[2021-12-27 10:51] LABS: T4 Free Direct 1.13 ng/dL (0.76-1.46); Thyroid Stim Hormone (TSH) 1.12 uIU/mL (0.358-3.74)
[2021-12-29 17:07] LABS: Thyroid Stim Immunoglob <0.10 IU/L (0.00-0.55)
[2021-12-29 19:42] LABS: Anti-Thyroglobulin AB < 1.0 IU/mL (0.0-0.9); Thyroglobulin, Serum Qt. 15.3 ng/mL (1.4-29.2); Thyroid Peroxidase AB < 8 IU/mL (0-34)
== END 2021-12-27 23:59 | disposition home or self-care (01) ==
LOC: MFPLAB 09:33
PROVIDERS: PCP Family Medicine; Referring Provider Family Medicine; Visit Provider Family Medicine
DX: E01.0 Iodine-deficiency related diffuse (endemic) goiter (principal)
CPT/HCPCS: 36415; 84432; 84439; 84443; 84445; 86376; 86800

== ENCOUNTER 2022-01-29 11:00 | Outpatient (RCR) | payer OTHER, BC, SELFPAY ==
[2021-12-11 00:05] VITALS: BMI 38.2
== END 2022-02-07 23:59 ==
LOC: NS 11:00
PROVIDERS: PCP Family Medicine; Referring Provider Family Medicine; Visit Provider Family Medicine
DX: E66.9 Obesity, unspecified (principal); Z68.38 Body mass index [BMI] 38.0-38.9, adult; Z71.3 Dietary counseling and surveillance
CPT/HCPCS: 97803

== ENCOUNTER 2022-03-05 12:56 | Outpatient (RCR) | payer OTHER, BC, SELFPAY ==
[2022-02-08 00:09] VITALS: BMI 38.2
== END 2022-03-09 23:59 ==
LOC: NS 12:56
PROVIDERS: PCP Family Medicine; Referring Provider Family Medicine; Visit Provider Family Medicine
DX: Z71.3 Dietary counseling and surveillance (principal); E66.9 Obesity, unspecified; Z68.38 Body mass index [BMI] 38.0-38.9, adult
CPT/HCPCS: 97803

== ENCOUNTER 2022-04-11 09:27 | Outpatient (RCR) | payer OTHER, BC, SELFPAY ==
[2022-03-10 00:13] VITALS: BMI 38.2
== END 2022-05-09 23:59 ==
LOC: NS 09:27
PROVIDERS: PCP Family Medicine; Referring Provider Family Medicine; Visit Provider Family Medicine
DX: Z71.3 Dietary counseling and surveillance (principal); Z68.38 Body mass index [BMI] 38.0-38.9, adult; E66.9 Obesity, unspecified
CPT/HCPCS: 97803

== ENCOUNTER 2022-06-04 14:25 | Outpatient (RCR) | payer OTHER, BC, SELFPAY ==
[2022-05-10 00:07] VITALS: BMI 38.2
== END 2022-06-09 23:59 ==
LOC: NS 14:25
PROVIDERS: PCP Family Medicine; Referring Provider Family Medicine; Visit Provider Family Medicine
DX: Z71.3 Dietary counseling and surveillance (principal); Z68.38 Body mass index [BMI] 38.0-38.9, adult; E66.9 Obesity, unspecified
CPT/HCPCS: 97803

== ENCOUNTER 2022-08-06 12:48 | Outpatient (RCR) | payer OTHER, BC, SELFPAY ==
[2022-06-10 00:09] VITALS: BMI 38.2
== END 2022-08-09 23:59 ==
LOC: NS 12:48
PROVIDERS: PCP Family Medicine; Referring Provider Family Medicine; Visit Provider Family Medicine
DX: Z71.3 Dietary counseling and surveillance (principal); Z68.38 Body mass index [BMI] 38.0-38.9, adult; E66.9 Obesity, unspecified
CPT/HCPCS: 97803

== ENCOUNTER 2022-09-02 09:53 | Outpatient (RCR) | payer OTHER, BC, SELFPAY ==
[2022-08-10 00:19] VITALS: BMI 38.2
== END 2022-09-09 23:59 ==
LOC: NS 09:53
PROVIDERS: PCP Family Medicine; Referring Provider Family Medicine; Visit Provider Family Medicine
DX: Z71.3 Dietary counseling and surveillance (principal); E66.9 Obesity, unspecified; Z68.38 Body mass index [BMI] 38.0-38.9, adult
CPT/HCPCS: 97803

== ENCOUNTER 2022-10-01 09:58 | Outpatient (RCR) | payer OTHER, BC, SELFPAY ==
[2022-09-10 00:12] VITALS: BMI 38.2
== END 2022-10-09 23:59 ==
LOC: NS 09:58
PROVIDERS: PCP Family Medicine; Referring Provider Family Medicine; Visit Provider Family Medicine
DX: Z71.3 Dietary counseling and surveillance (principal); E66.9 Obesity, unspecified; Z68.38 Body mass index [BMI] 38.0-38.9, adult
CPT/HCPCS: 97803

== ENCOUNTER → 2023-01-09 | Outpatient (CLI) | payer BC, SELFPAY ==
[2023-01-09 18:40] LABS: ALB/GLOB Ratio 1.4 RATIO (0.9-2.4); AST(SGOT) 29 U/L (15-37); Alanine Aminotransfer ALT/SGPT 41 U/L (16-61); Albumin, Serum 4.2 g/dL (3.2-5.0); Alkaline Phosphatase 52 U/L (45-117); Anion Gap 8 (5-15); BUN 17 mg/dL (7-18); BUN/Creat Ratio 15.6 RATIO (10-20); Chloride 108 mmol/L (98-107); Cholesterol 155 mg/dL (200); Creatinine, Serum 1.09 mg/dL (0.70-1.30); EST Glomerular Filtration Rate 79 mL/min (>60); Est Glom Filt Rate - Afr Amer 96 mL/min (>60); Glucose 89 mg/dL (74-106); High Density Lipoprotein 40 mg/dL; PSA,Total - Annual Screen 0.41 ng/mL (0.00-4.00); Potassium 3.9 mmol/L (3.5-5.1); Protein, Total 7.2 g/dL (6.4-8.2); Sodium Level 140 mmol/L (136-145); T4 Free Direct 1.35 ng/dL (0.76-1.46); Thyroid Stim Hormone (TSH) 1.58 uIU/mL (0.358-3.74); Triglycerides 114 mg/dL; Very Low Density Lipoprotein 23 mg/dL (5-40)
== END | disposition home or self-care (01) ==
LOC: MFPLAB 14:38
PROVIDERS: PCP Family Medicine; Referring Provider Family Medicine; Visit Provider Family Medicine
DX: E66.01 Morbid (severe) obesity due to excess calories (principal); E04.1 Nontoxic single thyroid nodule; Z12.5 Encounter for screening for malignant neoplasm of prostate
CPT/HCPCS: 36415; 80053; 80061; 84153; 84439; 84443; G0103

== ENCOUNTER → 2023-01-15 | Outpatient (CLI) | payer BC, SELFPAY ==
--- NOTE | 2023-01-15 12:49 | US_ITS ---
STUDY: THYROID ULTRASOUND REASON FOR EXAM: Male, 42 years old. Thyroid nodule. TECHNIQUE: Ultrasound evaluation of the thyroid was performed with real-time and static cano-scale imaging. COMPARISON: Comparison is made with prior examination dated December 24, 2021. FINDINGS: RIGHT LOBE: The right lobe of the thyroid gland is enlarged and measures 5.4 cm x 1.8 cm x 2.2 cm. There is a homogeneous echotexture. There is a 5 mm x 5 mm x 4 mm solid nodule in the midportion of the right lobe. LEFT LOBE: The left lobe of the thyroid gland is enlarged and measures 5.2 cm x 1.6 x 1 cm. There is a homogeneous echotexture. There are no demonstrated solid, cystic or complex lesions. ISTHMUS: The isthmus measures 5 mm. The regional lymph nodes are normal. US/Thyroid IMPRESSION: Enlargement of both lobes of the thyroid gland. Stable 5 mm x 5 mm x 4 mm hypoechoic solid nodule in the midportion of the right lobe. Electronically Signed: Сергей Coffey MD at 14:38 EST ,
== END | disposition home or self-care (01) ==
LOC: US 12:49
PROVIDERS: PCP Family Medicine; Visit Provider Family Medicine
DX: E04.1 Nontoxic single thyroid nodule (principal)
CPT/HCPCS: 76536

== ENCOUNTER → 2024-01-22 | Outpatient (CLI) | payer BC, SELFPAY ==
[2024-01-22 17:47] LABS: Absolute Lymphocyte Count 1.67 X10^3/uL (0.83-4.51); Absolute Neutrophil Count 5.2 X10^3/uL (2.0-7.7); Basophil# 0.06 X10^3/uL; Basophil% 0.8 % (0-1); Eosinophil# 0.41 X10^3/uL; Eosinophils% 5.1 % (0-5); Hematocrit 44.5 % (40-54); Hemoglobin 14.9 g/dL (13.0-16.5); Lymphocyte # 1.67 X10^3/ul (0.83-4.51); Lymphocyte % 20.9 % (19-41); Mean Corp Hgb Conc 33.5 g/dL (32-36); Mean Corpuscular Hgb 28.1 pg (27.0-32.0); Mean Corpuscular Volume 83.8 fL (80-94); Mean Platelet Vol. 8.6 fl (6.2-12.0); Monocyte# 0.61 X10^3/uL; Monocyte% 7.6 % (0-10); NRBC Flagged by Analyzer 0 % (0-5); Neutrophil # 5.22 X10^3/uL (2.7-7.7); Neutrophil % 65.2 % (47-70); Platelet Count 123 K/mm3 (150-450); RBC Distribution Width CV 12.6 % (11.6-14.6); RBC Distribution Width SD 38.1 fl (35.1-43.9); Red Blood Count 5.31 M/mm3 (4.6-6.2)
[2024-01-22 18:19] LABS: ALB/GLOB Ratio 1.3 RATIO (0.9-2.4); AST(SGOT) 25 U/L (15-37); Alanine Aminotransfer ALT/SGPT 44 U/L (16-61); Albumin, Serum 3.9 g/dL (3.2-5.0); Alkaline Phosphatase 42 U/L (45-117); Anion Gap 8 (5-15); BUN 18 mg/dL (7-18); BUN/Creat Ratio 15.7 RATIO (10-20); Calcium,Total 8.8 mg/dL (8.5-10.1); Chloride 108 mmol/L (98-107); Cholesterol 143 mg/dL (200); Creatinine, Serum 1.15 mg/dL (0.70-1.30); EST Glomerular Filtration Rate 74 mL/min (>60); Est Glom Filt Rate - Afr Amer 90 mL/min (>60); Glucose 108 mg/dL (74-106); High Density Lipoprotein 35 mg/dL; Potassium 3.9 mmol/L (3.5-5.1); Protein, Total 6.9 g/dL (6.4-8.2); Sodium Level 139 mmol/L (136-145); Thyroid Stim Hormone (TSH) 1.19 uIU/mL (0.358-3.74); Triglycerides 140 mg/dL; Very Low Density Lipoprotein 28 mg/dL (5-40)
[2024-01-24 14:37] LABS: Hemoglobin A1c 5.1 % (3.8-5.6)
[2024-02-03 13:55] LABS: Bacteria 0 SEEN /hpf (None Seen); Mucous, Urine 0 SEEN /hpf (<or=2+); Red Blood Cells-Urine 0 SEEN /hpf (0-5); Squamous Epithelial Cells - UA 0 SEEN /hpf (0-5); White Blood Cells 0 SEEN /hpf (0-5)
[2024-02-03 15:37] LABS: Color, Urine Yellow (Yellow); Glucose, Dipstick Normal (Normal); Ketone-Dipstick 5 mg/dl (Negative); Leukocyte Esterase-Dipstick Negative /ul (Negative); Nitrite-Dipstick Negative (Negative); Occult Blood-Urine Negative /ul (Negative); Protein-Dipstick Negative (Negative); Urine Bilirubin Dipstick Negative (Negative); Urine Clarity Clear (Clear); Urine Urobilinogen Normal (Normal); Urine pH 6.5 (5.0 - 8.0)
== END | disposition home or self-care (01) ==
LOC: MFPLAB 16:17
PROVIDERS: PCP Family Medicine; Visit Provider Family Medicine
DX: Z00.00 Encounter for general adult medical examination without abnormal findings (principal); Z12.5 Encounter for screening for malignant neoplasm of prostate; R73.09 Other abnormal glucose
CPT/HCPCS: 36415; 80053; 80061; 81001; 83036; 84153; 84443; 85025; G0103

== ENCOUNTER → 2024-12-20 | Outpatient (CLI) | payer OTHER, BC, SELFPAY ==
--- NOTE | 2024-12-20 12:16 | US_ITS ---
PROCEDURE: THYROID REASON FOR EXAM: Thyroid nodule. TECHNIQUE: Thyroid ultrasound COMPARISON: None. FINDINGS: Right thyroid lobe measures 4.6 cm x 1.8 cm x 2.2 cm. Left thyroid lobe measures 4.6 cm x 2 cm x 1.6 cm. Isthmus thickness is3 mm. Thyroid Size: Normal Background Echotexture: Normal Thyroid Nodules: There is a 5 mm x 5 mm x 4 mm hypoechoic nodule in the posterior aspect of the midpole of the right thyroid. Correlation with a thyroid nuclear medicine uptake and scan recommended. US/Thyroid IMPRESSION: Normal size of the thyroid gland. 5 mm x 5 mm x 4 mm hypoechoic nodule in the posterior aspect of the midpole of the right thyroid as described. Correlation with nuclear medicine uptake and thyroid scan recommended. Reading Location: [id number]
== END | disposition home or self-care (01) ==
LOC: US 12:13
PROVIDERS: PCP Family Medicine; Referring Provider Family Medicine; Visit Provider Family Medicine
DX: E04.1 Nontoxic single thyroid nodule (principal)
CPT/HCPCS: 76536

== ENCOUNTER → 2025-04-22 | Outpatient (CLI) | payer OTHER, BC, SELFPAY ==
[2025-04-22 15:19] LABS: Absolute Neutrophil Count 5.3 X10^3/uL (2.0-7.7); Basophil# 0.06 X10^3/uL; Basophil% 0.7 % (0-1); Eosinophil# 0.31 X10^3/uL; Eosinophils% 3.6 % (0-5); Hemoglobin 16.3 g/dL (13.0-16.5); Lymphocyte % 25.8 % (19-41); Mean Corp Hgb Conc 33.3 g/dL (32-36); Mean Corpuscular Hgb 28.2 pg (27.0-32.0); Mean Corpuscular Volume 84.9 fL (80-94); Mean Platelet Vol. 8.4 fl (6.2-12.0); Monocyte# 0.63 X10^3/uL; Monocyte% 7.4 % (0-10); NRBC Flagged by Analyzer 0 % (0-5); Neutrophil # 5.31 X10^3/uL (2.7-7.7); Neutrophil % 62.3 % (47-70); Platelet Count 148 K/mm3 (150-450); RBC Distribution Width CV 12.5 % (11.6-14.6); RBC Distribution Width SD 38.1 fl (35.1-43.9); Red Blood Count 5.77 M/mm3 (4.6-6.2); White Blood Count 8.5 K/mm3 (4.4-11.0)
[2025-04-22 17:34] LABS: ALB/GLOB Ratio 1.7 RATIO (0.9-2.4); AST(SGOT) 27 U/L (<=37); Alanine Aminotransfer ALT/SGPT 37 U/L (<=46); Albumin, Serum 4.6 g/dL (3.5-5.0); Alkaline Phosphatase 45 U/L (40-129); Anion Gap 12 (5-15); BUN 16 mg/dL (4-19); Calcium,Total 9.3 mg/dL (7.6-11.0); Carbon Dioxide 23.1 mmol/L (21.0-32.0); Chloride 104 mmol/L (98-108); Cholesterol 162 mg/dL (<=200); EST Glomerular Filtration Rate 77 (>60); Globulin 2.6 g/dL (2.2-4.2); Glucose 82 mg/dL (70-99); High Density Lipoprotein 41 mg/dL; Low Density Lipoprotein Calc. 97 mg/dL; PSA,Total - Annual Screen 0.51 ng/mL (0.02-4.00); Potassium 4.6 mmol/L (3.3-5.1); Protein, Total 7.2 g/dL (5.9-8.4); Sodium Level 139 mmol/L (133-145); Total Bilirubin 0.51 mg/dL (0.00-1.30); Triglycerides 122 mg/dL; Very Low Density Lipoprotein 24 mg/dL (5-40); cholesterol:hdl ratio screen 3.97
== END | disposition home or self-care (01) ==
LOC: MFPLAB 11:44
PROVIDERS: PCP Family Medicine; Referring Provider Family Medicine; Visit Provider Family Medicine
DX: Z00.00 Encounter for general adult medical examination without abnormal findings (principal); Z12.5 Encounter for screening for malignant neoplasm of prostate
CPT/HCPCS: 36415; 80053; 80061; 84153; 84443; 85025; G0103

== ENCOUNTER → 2025-05-27 | Outpatient (CLI) | payer OTHER, BC, SELFPAY ==
--- NOTE | 2025-05-27 07:42 | CT_ITS ---
PROCEDURE: SINUS/FACIAL BONE 05/27/2025 REASON FOR EXAM: OTHER CHRONIC SINUSITIS TECHNIQUE: SINUS/FACIAL BONE Coronal and Sagittal reconstruction series were provided. One or more dose reduction techniques were used (e.g., Automated exposure control, adjustment of the mA and/or kV according to patient size, use of iterative reconstruction technique). RADIATION DOSE SUMMARY: CTDlvol: 33.06 mGy DLP: 908.23 mGycm COMPARISON: None FINDINGS: Frontal: Clear. Ethmoid: Mild degree of mucosal thickening of the ethmoid sinuses. Prior partial resection of the left ethmoid sinus. Sphenoid: Unremarkable. Maxillary: Mucosal thickening of the left maxillary sinus. The patient is status post surgery of the medial wall of the left maxillary sinus. Turbinates: Prior resection of the left middle turbinate an upper turbinate. Nasal Septum: Midline. Mastoids/Middle Ears: Unremarkable CT/Sinus/Facial Bone IMPRESSION: Mucosal thickening of the left maxillary sinus with a prior resection of the tompkins perior medial wall of the left maxillary sinus and partial resection of the left ethmoid sinus as well as the superior and middle left turbinates. Reading Location: [id number] [id number]
== END | disposition home or self-care (01) ==
LOC: CT 07:36
PROVIDERS: PCP Family Medicine; Referring Provider Otolaryngology; Visit Provider Otolaryngology
DX: J32.8 Other chronic sinusitis (principal)
CPT/HCPCS: 70486

== ENCOUNTER → 2025-09-30 | Outpatient (CLI) | payer OTHER, BC, SELFPAY | END | disposition home or self-care (01) | LOC: LABSPEC 16:12 | PROVIDERS: PCP Family Medicine | DX: J01.90 Acute sinusitis, unspecified (principal) | CPT/HCPCS: 87070; 87077; 87186; 87205 ==